=== PATIENT | female | born 1930 | race Native Hawaiian/Other Pacific Islander ===

== ENCOUNTER 2016-12-23 11:38 | Outpatient (CLI) | payer OTHER, BC ==
[~2016-12-23 11:38] MED LIST: ALLEGRA ALRG180 M1 PO; AMIO200T14 PO; CARV12.5 PO; CELEBREX200 MG PO; COMBIGAN0.2 MG/0.5 OP; DOXYCYCL HYC50 MG OR; ELIQUIS2.5 MG PO; FLUT0.05 NAS; HYDR25TA60 PO; HYDROCHLOROT12.5 M1 PO; LEVO0.0218 PO; LISI10TA11 PO; LOTE0.5S OPTH; LUMIGAN0.01 % OP; METO100T37 PO; OMEP20CA PO; PATADAY0.2 % OP; RESTASIS0.05 % OP; SIMV20TA2 PO; SIMV40TA57; SIMV40TA57 PO; SYSTANE BAL OP; TRICOR145 MG PO
== END 2016-12-23 19:32 | disposition home or self-care (01) ==
LOC: RAD 11:38
DX: Z51.81 Encounter for therapeutic drug level monitoring (principal)

== ENCOUNTER 2017-02-21 10:29 | Emergency (ER) | payer OTHER, BC ==
[~2017-02-21] VITALS: Ht 157.5 cm; Wt 62.1 kg
[2017-02-21 13:38] LABS: POTASSIUM 3.6 mmol/L (3.6-5.2)
[2017-02-21 13:45] LABS: PLATELET COUNT 259 K/uL (152-353)
[2017-02-21 15:00] VITALS: TEMP 98
[2017-02-21 15:39] VITALS: BP 148/88
== END 2017-02-21 15:50 | disposition short-term general hospital (02) ==
LOC: ED 10:29
PROVIDERS: Specialist
DX: S72.012A Unspecified intracapsular fracture of left femur, initial encounter for closed fracture (principal); W18.39XA Other fall on same level, initial encounter; Y92.098 Other place in other non-institutional residence as the place of occurrence of the external cause
CPT/HCPCS: 80048; 81000; 85027; 93005; 96374; 96375; 99284; J0595; J2405

== ENCOUNTER 2017-02-24 14:43 | Inpatient (IN) | payer OTHER, BC ==
[2017-02-25 06:40] LABS: PLATELET COUNT 206 K/uL (152-353)
[2017-02-25 07:01] LABS: POTASSIUM 3.8 mmol/L (3.6-5.2)
[2017-03-07 06:26] LABS: PLATELET COUNT 443 K/uL (152-353)
== END 2017-03-11 13:43 | disposition home or self-care (01) ==
LOC: PAVB 14:43
PROVIDERS: ADMIT Internal Medicine
DX: M62.81 Muscle weakness (generalized) (principal); R26.9 Unspecified abnormalities of gait and mobility; R48.9 Unspecified symbolic dysfunctions; S72.002A Fracture of unspecified part of neck of left femur, initial encounter for closed fracture; I82.409 Acute embolism and thrombosis of unspecified deep veins of unspecified lower extremity; I10 Essential (primary) hypertension
CPT/HCPCS: 36415; 80053; 80061; 84443; 85027; 87081

== ENCOUNTER 2017-07-29 10:10 | Inpatient (IN) | payer OTHER, BC ==
[2017-07-30 07:54] LABS: POTASSIUM 3.6 mmol/L (3.6-5.2)
[2017-07-30 07:57] LABS: PLATELET COUNT 361 K/uL (152-353)
== END 2017-08-13 10:00 | disposition home or self-care (01) ==
LOC: PAVB 10:10
PROVIDERS: ADMIT Internal Medicine
DX: S72.031A Displaced midcervical fracture of right femur, initial encounter for closed fracture (principal); R26.9 Unspecified abnormalities of gait and mobility; M62.81 Muscle weakness (generalized); H18.51 Endothelial corneal dystrophy; M06.9 Rheumatoid arthritis, unspecified; M51.26 Other intervertebral disc displacement, lumbar region; Z95.0 Presence of cardiac pacemaker
CPT/HCPCS: 80053; 80061; 81000; 84443; 85027; 87081

== ENCOUNTER 2017-11-21 12:20 | Outpatient (CLI) | payer OTHER, BC | END 2017-11-21 21:11 | disposition home or self-care (01) | LOC: RAD 12:20 | DX: J40 Bronchitis, not specified as acute or chronic (principal) ==

== ENCOUNTER 2018-02-22 10:27 | Outpatient (CLI) | payer OTHER, BC | END 2018-02-22 21:39 | disposition home or self-care (01) | LOC: US 10:27 | DX: M79.89 Other specified soft tissue disorders (principal) ==

== ENCOUNTER 2018-04-10 10:44 | Outpatient (CLI) | payer OTHER, BC ==
[2018-04-10 11:55] LABS: PLATELET COUNT 230 K/uL (152-353)
[2018-04-10 13:08] LABS: POTASSIUM 3.6 mmol/L (3.6-5.2)
== END 2018-04-10 22:37 | disposition home or self-care (01) ==
LOC: LABW 10:44
PROVIDERS: Internal Medicine
DX: R14.0 Abdominal distension (gaseous) (principal); R60.0 Localized edema; R19.09 Other intra-abdominal and pelvic swelling, mass and lump; R82.99 Other abnormal findings in urine
CPT/HCPCS: 36415; 80053; 81000; 83880; 84439; 84443; 85027; 86304; 87077; 87086; 87088; 87186

== ENCOUNTER 2018-04-14 09:54 | Outpatient (CLI) | payer OTHER, BC | END 2018-04-14 19:16 | disposition home or self-care (01) | LOC: CT 09:54 | DX: K74.69 Other cirrhosis of liver (principal) | CPT/HCPCS: 36415; 80074; 83516; 85651; 86039; Q9963 ==